=== PATIENT | male | born 1945 | race Caucasian/White ===

== ENCOUNTER 2018-06-29 07:48 | Day surgery (SDC) | payer MEDICARE, BC ==
[~2018-06-29 07:48] MED LIST: Lactated Ringers 1,000 ML IV SCH
[2018-06-29] MEDS ORDERED: Propofol 200 MG/20 ML SDV ONE (08:21)
[2018-06-29] MEDS ORDERED: fentaNYL 100 MCG/2 ML SDV ONE (08:22)
[2018-06-29 11:28] VITALS: BP 100/62
--- NOTE | 2018-06-29 11:30 | OR ---
PREOPERATIVE DIAGNOSIS: Dysphagia and abnormal barium swallow. POSTOPERATIVE DIAGNOSIS: Proximal gastric ulceration with inflammation. PROCEDURE PROPOSED: Upper gastrointestinal panendoscopy with antral and upper gastric biopsies. PROCEDURE DONE: Upper gastrointestinal panendoscopy with antral and upper gastric biopsies. INDICATION: This is a 73-year-old gentleman bothered with some dysphagia and some acid indigestion. He had a barium swallow done, which revealed some mild thickening right at the GE junction on the inner side of the stomach and it was felt he should be gastroscoped to rule out worrisome pathology. TECHNIQUE: The patient was brought to the endoscopy suite, placed in left lateral decubitus position. He was sedated per [employer] with propofol. The flexible video gastroscope was then passed transorally and under visualization, as well into the duodenum. The duodenum, and duodenal bulb were unremarkable. The antral and pre-pyloric area appeared quite normal and healthy. Couple antral biopsies were taken to rule out H. pylori. I then did a J maneuver of the scope and evaluated the underside of the GE junction and there was some reddened areas with some inflammation and appeared to be a linear ulceration just inside the GE junction. I did some biopsies in that area. This appeared very benign and non-cancerous and then the GE junction itself looked good without any evidence of acid reflux or stenosis or Schatzki's ring and the remainder of esophagus was normal. The scope was then withdrawn. He tolerated the procedure well. FINAL IMPRESSION: Proximal gastric inflammation with ulceration. Biopsies pending. PLAN: The patient needs to take his Prilosec twice a day for a month and then daily thereafter. He is a heavy smoker and drinker and needs to cut back on that. He was warned about that. He was told the medicine can only do so much, so he needs to change his lifestyle to help his stomach and he will follow up with Dr. Trent Sheehan as needed. SCM: 06/29/2018 09:56:31 MODL: 06/29/2018 11:25:36 /[id number]
== END 2018-06-29 10:29 | disposition home or self-care (01) ==
LOC: VM.SDS 07:48
PROVIDERS: ATTEND Surgery
DX: K25.9 Gastric ulcer, unspecified as acute or chronic, without hemorrhage or perforation (principal); K31.89 Other diseases of stomach and duodenum; E78.00 Pure hypercholesterolemia, unspecified; E78.5 Hyperlipidemia, unspecified; E55.9 Vitamin D deficiency, unspecified; F41.8 Other specified anxiety disorders; F17.210 Nicotine dependence, cigarettes, uncomplicated; Z79.899 Other long term (current) drug therapy
CPT/HCPCS: 00731; 43239; J2704; J3010; J7120

== ENCOUNTER 2024-05-07 06:54 | Day surgery (SDC) | payer MEDICARE, BC ==
[2024-05-07] MEDS: Lactated Ringers 1,000 ML IV SCH (07:12)
[2024-05-07] MEDS ORDERED: fentaNYL 100 MCG/2 ML SDV ONE (09:27)
[2024-05-07] MEDS ORDERED: Propofol 200 MG/20 ML SDV ONE (09:27)
[2024-05-07 10:12] VITALS: BP 91/57; PULSE 60
== END 2024-05-07 10:53 | disposition home or self-care (01) ==
LOC: VM.SDS 06:54
PROVIDERS: ATTEND Student in an Organized Health Care Education/Training Program
DX: Z12.11 Encounter for screening for malignant neoplasm of colon (principal); E78.5 Hyperlipidemia, unspecified; I25.10 Atherosclerotic heart disease of native coronary artery without angina pectoris; F33.2 Major depressive disorder, recurrent severe without psychotic features; G47.00 Insomnia, unspecified; K21.9 Gastro-esophageal reflux disease without esophagitis; N40.1 Benign prostatic hyperplasia with lower urinary tract symptoms; F10.20 Alcohol dependence, uncomplicated; F17.210 Nicotine dependence, cigarettes, uncomplicated; Z95.1 Presence of aortocoronary bypass graft; Z79.82 Long term (current) use of aspirin; Z79.899 Other long term (current) drug therapy; Z86.010 Personal history of colon polyps
CPT/HCPCS: J2704; J3010; J7120

== ENCOUNTER 2024-07-02 12:32 | Emergency (ER) | payer OTHER, MEDICARE, BC ==
[2024-07-02 12:50] VITALS: BP 119/71; PULSE 89
== END 2024-07-02 14:11 | disposition home or self-care (01) ==
LOC: VM.ED 12:32
DX: S46.912A Strain of unspecified muscle, fascia and tendon at shoulder and upper arm level, left arm, initial encounter (principal); I25.10 Atherosclerotic heart disease of native coronary artery without angina pectoris; E78.00 Pure hypercholesterolemia, unspecified; Z86.73 Personal history of transient ischemic attack (TIA), and cerebral infarction without residual deficits; Z79.82 Long term (current) use of aspirin; Z79.899 Other long term (current) drug therapy; V89.2XXA Person injured in unspecified motor-vehicle accident, traffic, initial encounter
CPT/HCPCS: 73030-LT; 99283